=== PATIENT | female | born 1955 | race Caucasian/White ===

== ENCOUNTER 2018-11-14 13:40 | Emergency (ER) | payer OTHER ==
[~2018-11-14] VITALS: Ht 172.7 cm; Wt 68.0 kg
[~2018-11-14 13:40] MED LIST: ALBU90OI INH; CALCIUM CITRAT480 GM PO; CHOL10002; ENOX100I; PROBIOTIC1 EAC1 PO; Percocet 5-3251 EACH PO; RALO60 PO; VITAMINS; WARF4; WARF5 PO; Zithromax250 MG PO
[2018-11-14] MEDS ORDERED: Coumadin5 MG PO (15:44)
[2018-11-15] MEDS ORDERED: PARVA-CAL 5001 EACH PO (09:17)
== END 2018-11-14 16:04 | disposition home or self-care (01) ==
LOC: ER 13:40
DX: I82.402 Acute embolism and thrombosis of unspecified deep veins of left lower extremity (principal); Z88.0 Allergy status to penicillin; Z88.1 Allergy status to other antibiotic agents; Z88.5 Allergy status to narcotic agent; Z85.3 Personal history of malignant neoplasm of breast; F17.200 Nicotine dependence, unspecified, uncomplicated
CPT/HCPCS: 93005; 93010; 93971; 99284-25; J1650

== ENCOUNTER 2018-11-15 08:42 | Day surgery (SDC) | payer OTHER ==
[~2018-11-15 08:42] MED LIST changes: +Coumadin5 MG PO
[2018-11-15] MEDS ORDERED: PARVA-CAL 5001 EACH PO (09:17)
== END 2018-11-15 09:30 | disposition home or self-care (01) ==
LOC: ATC 08:42
DX: I82.492 Acute embolism and thrombosis of other specified deep vein of left lower extremity (principal); Z88.0 Allergy status to penicillin; Z88.8 Allergy status to other drugs, medicaments and biological substances
CPT/HCPCS: 96372; J1650

== ENCOUNTER 2018-11-16 02:21 | Day surgery (SDC) | payer OTHER ==
[~2018-11-16 02:21] MED LIST changes: +PARVA-CAL 5001 EACH PO
--- NOTE | 2018-11-16 14:13 | NUR ---
PT BACK IN TO GET LOVENOX AFTER MD SENT NEW ORDERS TO CONTINUE X 3 DAYS EVEN THOUGH INR WAS > 2.0 THIS AM.
== END 2018-11-16 23:06 | disposition home or self-care (01) ==
LOC: ATC 02:21
DX: I82.492 Acute embolism and thrombosis of other specified deep vein of left lower extremity (principal); Z88.0 Allergy status to penicillin; Z88.8 Allergy status to other drugs, medicaments and biological substances
CPT/HCPCS: 36416; 85610; 96372; J1650

== ENCOUNTER 2018-11-17 09:55 | Day surgery (SDC) | payer OTHER ==
--- NOTE | 2018-11-17 10:13 | NUR ---
FINGERSTICK INR CHECK TODAY = 2.4
== END 2018-11-17 10:07 | disposition home or self-care (01) ==
LOC: ATC 09:55
DX: I82.492 Acute embolism and thrombosis of other specified deep vein of left lower extremity (principal); Z88.0 Allergy status to penicillin; Z88.8 Allergy status to other drugs, medicaments and biological substances
CPT/HCPCS: 36416; 85610; 96372; J1650

== ENCOUNTER 2018-11-18 10:57 | Day surgery (SDC) | payer OTHER ==
--- NOTE | 2018-11-18 13:09 | NUR ---
PT INR 2.9, MEDICATION GIVEN PER ORDERS. PT TEACHING ON CONDTION, VERBALIZES UNDERSTANDING.
--- NOTE | 2018-11-18 17:08 | NUR ---
INR RESULT FAXED TO DR KOURTNEY CORDOVA
== END 2018-11-18 11:16 | disposition home or self-care (01) ==
LOC: ATC 10:57
DX: I82.492 Acute embolism and thrombosis of other specified deep vein of left lower extremity (principal); Z88.0 Allergy status to penicillin; Z88.8 Allergy status to other drugs, medicaments and biological substances
CPT/HCPCS: 36416; 85610; 96372; J1650

== ENCOUNTER → 2019-04-25 | Outpatient (CLI) | payer OTHER | LOC: LAB SHORT 17:07 → LAB 17:07 | DX: L08.9 Local infection of the skin and subcutaneous tissue, unspecified (principal); D22.4 Melanocytic nevi of scalp and neck | CPT/HCPCS: 87529 ==

== ENCOUNTER → 2019-07-02 | Outpatient (CLI) | payer OTHER ==
[2019-07-04 14:07] LABS: HPV 16 Negative (Negative); HPV 18 Negative (Negative); HPV OTHER HR TYPES Negative (Negative)
== END | disposition home or self-care (01) ==
LOC: LAB SHORT 12:55 → LAB 12:55
PROVIDERS: Nurse Practitioner Women's Health
DX: Z12.4 Encounter for screening for malignant neoplasm of cervix (principal)
CPT/HCPCS: 87624; G0123

== ENCOUNTER 2019-11-16 08:59 | Emergency (ER) | payer OTHER ==
[~2019-11-16] VITALS: Ht 165.1 cm; Wt 65.8 kg
[2019-11-16 10:15] LABS: BASOPHILS ABSOLUTE AUTO 0.02 K/mm3 (0.00-0.23); BASOPHILS PERCENT AUTO 0 % (0-2); EOSINOPHILS ABSOLUTE AUTO 0.12 K/mm3 (0.00-0.68); EOSINOPHILS PERCENT AUTO 2 % (0-6); Hematocrit 49.9 % (33.0-51.0); Hemoglobin 16.7 g/dL (11.5-16.0); IMMATURE GRAN ABSOLUTE AUTO 0.01 K/mm3 (0.00-0.10); IMMATURE GRAN PERCENT AUTO 0 % (0-1); LYMPHOCYTES ABSOLUTE AUTO 0.45 K/mm3 (0.84-5.20); LYMPHOCYTES PERCENT AUTO 9 % (21-46); MONOCYTES ABSOLUTE AUTO 0.45 K/mm3 (0.16-1.47); MONOCYTES PERCENT AUTO 9 % (4-13); Mean Corpuscular HGB 35.8 pg (26.0-34.0); Mean Corpuscular HGB Conc 33.5 g/dL (31.5-36.5); Mean Corpuscular Volume 107 fL (80-100); NEUTROPHILS ABSOLUTE AUTO 4.12 K/mm3 (1.96-9.15); NEUTROPHILS PERCENT AUTO 80 % (41-73); Platelet Count 145 K/mm3 (150-400); RDW Coefficient Variation 14.1 % (11.7-14.2); RDW Standard Deviation 55.9 fL (35.1-46.3); Red Blood Cell Count 4.67 M/mm3 (3.80-5.20); White Blood Cell Count 5.17 K/mm3 (4.00-11.30)
[2019-11-16 10:33] LABS: Alanine Aminotransfer (ALT/SGP 22 U/L (12-78); Albumin, Blood 3.3 g/dL (3.4-5.0); Albumin/Globulin Ratio 0.9 (0.8-1.8); Anion Gap 4 mmol/L (6-16); Aspartate Aminotrans (AST/SGOT 18 U/L (12-37); Bilirubin, Total 0.9 mg/dL (0.1-1.0); Blood Urea Nitrogen 9 mg/dL (8-24); CO2, Blood 30 mmol/L (21-32); Calcium, Blood 8.9 mg/dL (8.5-10.1); Chloride, Blood 108 mmol/L (98-108); Globulin, Blood 3.7 g/dL (2.2-4.0); Glomerular Filtration Rate >60 (60-); Glucose, Blood 104 mg/dL (70-99); Potassium, Blood 3.7 mmol/L (3.5-5.5); Sodium, Blood 142 mmol/L (136-145)
[2019-11-16 10:35] LABS: Alk Phos 95 U/L (50-136)
== END 2019-11-16 11:34 | disposition home or self-care (01) ==
LOC: ER 08:59
PROVIDERS: Physician Assistant
DX: K11.20 Sialoadenitis, unspecified (principal); F17.200 Nicotine dependence, unspecified, uncomplicated; Z88.0 Allergy status to penicillin; Z88.5 Allergy status to narcotic agent; Z88.1 Allergy status to other antibiotic agents; Z79.01 Long term (current) use of anticoagulants
CPT/HCPCS: 36415; 80053; 85025; 96365; 96375; 99283-25; J1885

== ENCOUNTER 2019-12-01 10:41 | Inpatient (IN) | payer OTHER ==
[~2019-12-01] VITALS: Ht 172.7 cm; Wt 63.6 kg
[2019-12-01] MEDS ORDERED: CLIN150 PO (11:00)
[2019-12-01] MEDS ORDERED: PROBIOTIC GOLD1 EACH PO (11:01)
[2019-12-01] MEDS ORDERED: WARF4 PO (11:01)
[2019-12-01 11:17] LABS: BASOPHILS ABSOLUTE AUTO 0.02 K/mm3 (0.00-0.23); BASOPHILS PERCENT AUTO 0 % (0-2); EOSINOPHILS PERCENT AUTO 2 % (0-6); Hematocrit 46.7 % (33.0-51.0); Hemoglobin 15.5 g/dL (11.5-16.0); IMMATURE GRAN ABSOLUTE AUTO 0.05 K/mm3 (0.00-0.10); IMMATURE GRAN PERCENT AUTO 1 % (0-1); LYMPHOCYTES ABSOLUTE AUTO 0.77 K/mm3 (0.84-5.20); LYMPHOCYTES PERCENT AUTO 14 % (21-46); MONOCYTES ABSOLUTE AUTO 0.36 K/mm3 (0.16-1.47); MONOCYTES PERCENT AUTO 6 % (4-13); Mean Corpuscular HGB 35.8 pg (26.0-34.0); Mean Corpuscular HGB Conc 33.2 g/dL (31.5-36.5); Mean Corpuscular Volume 108 fL (80-100); Mean Platelet Volume 9.6 fL (9.1-12.4); NEUTROPHILS ABSOLUTE AUTO 4.36 K/mm3 (1.96-9.15); NEUTROPHILS PERCENT AUTO 77 % (41-73); Platelet Count 234 K/mm3 (150-400); RDW Coefficient Variation 14.3 % (11.7-14.2); RDW Standard Deviation 57.5 fL (35.1-46.3); Red Blood Cell Count 4.33 M/mm3 (3.80-5.20); White Blood Cell Count 5.66 K/mm3 (4.00-11.30)
[2019-12-01 11:34] LABS: Alanine Aminotransfer (ALT/SGP 23 U/L (12-78); Albumin, Blood 3.1 g/dL (3.4-5.0); Albumin/Globulin Ratio 0.8 (0.8-1.8); Anion Gap 4 mmol/L (6-16); Aspartate Aminotrans (AST/SGOT 15 U/L (12-37); Bilirubin, Total 0.4 mg/dL (0.1-1.0); Blood Urea Nitrogen 8 mg/dL (8-24); Bun/Creatinine Ratio 12.5 (12.0-20.0); CO2, Blood 31 mmol/L (21-32); Calcium, Blood 9.1 mg/dL (8.5-10.1); Chloride, Blood 107 mmol/L (98-108); Creatinine, Blood 0.64 mg/dL (0.40-1.00); Globulin, Blood 3.9 g/dL (2.2-4.0); Glomerular Filtration Rate >60 (60-); Glucose, Blood 92 mg/dL (70-99); Potassium, Blood 3.7 mmol/L (3.5-5.5); Sodium, Blood 142 mmol/L (136-145)
[2019-12-01 11:36] LABS: Alk Phos 87 U/L (50-136)
[2019-12-01] MEDS ORDERED: ANORO ELLIPTA1 EACH INH ×2 (13:11)
[2019-12-01 14:14] LABS: International Normalized Ratio 1.75; Prothrombin Time Results 18.1 Sec (9.7-11.5)
--- NOTE | 2019-12-01 15:09 | NUR ---
PT ADMITTED. PT ADMITTED IN STABLE CONDTION. PT ORIENTED TO ROOM. CALL LIGHT IN REACH. AT BEDSIDE. DR. PARIS CALLED FOR PAIN MEDS. TYLENOL AND TORADOL ORDERED. WILL MEDICATE ONCE VERIFIED. WILL CONTINUE TO MONITOR.
--- NOTE | 2019-12-01 16:50 | NUR ---
SHIFT SUMMARY PT MEDICATED FOR PAIN ONCE THIS SHIFT. HEAT PAD IN ROOM FOR COMFORT. L JAW REDNESS LESSENED. IV ANTIBIOTICS INFUSED. NICOTINE PATCH APPLIED. PT DENIES NEEDS AT THIS TIME. VSS. WILL CONTINUE TO MONITOR UNITL TURNOVER IS COMPLETE.
--- NOTE | 2019-12-02 04:17 | NUR ---
SHIFT SUMMARY PATIENT HAD NO ACUTE CHANGES OBSERVED. AXOX 4 AND INDEPENDENT IN ROOM. REPORTED RIGHT JAW PAIN X TWO AND IV TORADOL 15 MG GIVEN PER EMAR. PATIENT ABLE TO SLEEP. PIV REMAINS INTACT. IV ABX INFUSED. DENIES SOB AND N/V. COOPERATIVE WITH CARE. CALL LIGHT IN REACH. BED IN LOWEST POSITION. WILL CONTINUE TO MONITOR UNTIL DAY SHIFT NURSE ASSUME CARE.
[2019-12-02 05:39] LABS: International Normalized Ratio 2.43; Prothrombin Time Results 24.7 Sec (9.7-11.5)
--- NOTE | 2019-12-02 11:58 | NUR ---
DR BECKHAM CALLED FROM [facility] AND ASKED THAT I PLACE AN ORDER AND HAVE READY AT THE BEDSIDE 1% LIDOCAINE WITH EPI AND 25MCG OF FENTANYL.
--- NOTE | 2019-12-02 12:54 | NUR ---
ASSISTED DR NG WITH REMOVAL OF SOME DICHARGE FROM RIGHT SIDE JAW ABCESS. DR NG USED 2ML OF LIDOCAINE AT SITE OF REMOVAL AND I ADMINISTERED 25MCG OF FENTANYL IV FO PAIN CONTROL. PATIENT TOLERATED WELL. REMOVED DISCHARGED SENT TO LAB FOR CULTURE.
--- NOTE | 2019-12-02 14:52 | NUR ---
12/02/19 Pt. gave permisson to this SRN to provide care on 12/03/19.
--- NOTE | 2019-12-02 16:45 | NUR ---
SHIFT SUMMARY THE PATIENT HAS HAD A GOOD SHIFT. C/O PAIN ONCE MID-SHIFT WITH EFFECTIVENESS FROM REQUESTED IV TORODOL. HAD DRAINAGE OF R JAW ABCESS AT THE BEDSIDE BY DR NG, ENT AND TOLERATED WELL. CONTINUES ON IV ABX WITHOUT S/SX OF ADVERSE REACTIONS NOTED OR REPORTED. VITALS HAVE BEEN STABLE. THE PATIENT REMAINS INDEPENDENT IN HER ROOM. SHE CALLS APPROPRIATELY FOR STAFF ASSIST. WILL CONTINUE TO MONITOR AND PROVIDE CARE NEEDED.
[2019-12-03 05:37] LABS: International Normalized Ratio 1.89; Prothrombin Time Results 19.5 Sec (9.7-11.5)
--- NOTE | 2019-12-03 06:50 | NUR ---
PT with failed outpt tx of dental abscess rt sided had ENT consult who attempted to aspirate rt facial edema. Medicated x 2 with toradol for facial pain, tylenol x 1. Helpful effect. Continues in IV flagyl and levaquin to tx infection.
[2019-12-03] MEDS ORDERED: WARF6 PO (11:31)
[2019-12-03] MEDS ORDERED: NICO21TP TOP (11:32)
[2019-12-03] MEDS ORDERED: LEVFLO500 PO (11:33)
[2019-12-03] MEDS ORDERED: METR500 PO (11:34)
[2019-12-03] MEDS ORDERED: VSL (11:36)
[2019-12-03] MEDS ORDERED: TRAM50 PO (15:56)
[2019-12-03] MEDS ORDERED: DEXA2 PO (16:07)
--- NOTE | 2019-12-03 17:28 | NUR ---
DISCHARGED TO HOME AT 1625 WITH BELONGINGS AND INSTRUCTIONS. SHE ALSO HAS HER TRAMADOL RX. SHE UNDERSTANDS WHAT SHE NEEDS TO GEROPSYCHOLOGIST FROM THE PHARMACY. SHE IS ABLE TO EAT AND DRINK WELL. HER RIGHT JAW/CHEEK IS RED AND SWOLLEN. IT IS PAINFUL. SHE WILL TAKE STEROIDS, ANTIBIOTICS, AND PAIN MEDICINE AT HOME AND SEE THE DENTIST IN 3 DAYS.
== END 2019-12-03 16:52 | disposition home or self-care (01) | DRG 159 ==
LOC: ER 10:41 → MEDS 10:42
PROVIDERS: Pharmacist; Physician Assistant; ADMIT Internal Medicine
DX: K04.7 Periapical abscess without sinus (principal); J44.9 Chronic obstructive pulmonary disease, unspecified; F17.210 Nicotine dependence, cigarettes, uncomplicated; Z86.718 Personal history of other venous thrombosis and embolism; Z88.1 Allergy status to other antibiotic agents; Z88.5 Allergy status to narcotic agent; Z88.0 Allergy status to penicillin; Z88.7 Allergy status to serum and vaccine; Z85.3 Personal history of malignant neoplasm of breast; Z92.21 Personal history of antineoplastic chemotherapy; Z92.3 Personal history of irradiation; Z79.01 Long term (current) use of anticoagulants
CPT/HCPCS: 36415; 70487; 80053; 85025; 85610; 87070; 87075; 87076; 87185; 87205; 93970; 94640; 94760; 96365-59; 96366; 96367; 96375; 96375-59; 96376; 99284-25; A9270; G0378; J1100; J1885; J1956; J3010; J7040; Q9967

== ENCOUNTER → 2021-02-23 | Outpatient (CLI) | payer OTHER ==
[~2021-02-23] MED LIST changes: +ANORO ELLIPTA1 EACH INH; +CLIN150 PO; +DEXA2 PO; +LEVFLO500 PO; +METR500 PO; +NICO21TP TOP; +PROBIOTIC GOLD1 EACH PO; +TRAM50 PO; +VSL; +WARF4 PO; +WARF6 PO
== END | disposition home or self-care (01) ==
LOC: LAB SHORT 12:34 → PLD 12:34
DX: D22.5 Melanocytic nevi of trunk (principal)
CPT/HCPCS: 88305

== ENCOUNTER → 2022-02-22 | Outpatient (CLI) | payer OTHER | END | disposition home or self-care (01) | LOC: LAB SHORT 11:06 → LAB 11:06 | DX: D22.5 Melanocytic nevi of trunk (principal) | CPT/HCPCS: 88305 ==

== ENCOUNTER 2023-03-04 00:12 | Day surgery (SDC) | payer OTHER ==
[2023-03-04] MEDS ORDERED: CHANTIX1 MG PO (10:25)
[2023-03-04] MEDS ORDERED: Ventolin/Prove6.7 GM INH (10:33)
[2023-03-04] MEDS ORDERED: PROLIA60 MG/1 ML SC ×2 (10:34→10:38)
[2023-03-04 11:26] VITALS: BP 147/83
== END 2023-03-04 11:44 | disposition home or self-care (01) ==
LOC: ATC 00:12
DX: R91.1 Solitary pulmonary nodule (principal); Z88.5 Allergy status to narcotic agent; Z88.0 Allergy status to penicillin; Z88.1 Allergy status to other antibiotic agents
CPT/HCPCS: 96372; J1650

== ENCOUNTER 2023-03-05 00:05 | Day surgery (SDC) | payer OTHER ==
[~2023-03-05 00:05] MED LIST changes: +CHANTIX1 MG PO; +PROLIA60 MG/1 ML SC; +Ventolin/Prove6.7 GM INH
[2023-03-05 11:36] VITALS: BP 140/87
== END 2023-03-05 11:38 | disposition home or self-care (01) ==
LOC: ATC 00:05
DX: Z86.711 Personal history of pulmonary embolism (principal); Z79.01 Long term (current) use of anticoagulants
CPT/HCPCS: 96372; J1650

== ENCOUNTER 2023-03-06 00:26 | Day surgery (SDC) | payer OTHER ==
[2023-03-06 11:50] VITALS: BP 166/98
== END 2023-03-06 11:50 | disposition home or self-care (01) ==
LOC: ATC 00:26
DX: Z86.711 Personal history of pulmonary embolism (principal); Z79.01 Long term (current) use of anticoagulants
CPT/HCPCS: 96372; J1650

== ENCOUNTER 2023-04-05 06:09 | Day surgery (SDC) | payer OTHER ==
[~2023-04-05] VITALS: Ht 172.7 cm; Wt 75.5 kg
[2023-04-05] VITALS (10 sets, daily range): BP systolic 105–152; BP diastolic 68–99
[2023-04-05] MEDS ORDERED: ENOX40I SC (06:48)
[2023-04-05] MEDS ORDERED: ATEN25 PO (06:49)
--- NOTE | 2023-04-05 07:17 | NUR ---
Ambulatory in Day Surgery History, Chart, Medications and Allergies reviewed before start of procedure.Patient confirms NPO status and agrees with scheduled surgery. Pre-Op teaching done. Pt verbalizes understanding. Patient States Post-Procedure ride home has been arranged.
--- NOTE | 2023-04-05 09:16 | NUR ---
Patient up to Ambulate independently. Gait steady. Discharge instructions reviewed with patient. Patient verbalizes understanding. Copy given to patient to take home. Dressing to procedure site clean, dry, intact with no visible drainage, swelling, erythema or bruising noted. Patient States Post-Procedure ride home has been arranged. Discharged via wheelchair to private car for ride home. PT TO GO STRAIGHT TO [facility] FOR CHEMO APPT AT 0930. PT DENIES PAIN. AT BEDSIDE.
--- NOTE | 2023-04-05 09:21 | NUR ---
IV REMOVED CLEAR SITE /CATH INTACT
== END 2023-04-05 22:51 | disposition home or self-care (01) ==
LOC: ORSCMMR 06:09 → ORD 06:09 → ORSCMMR 06:10 → ORD 07:30
PROVIDERS: Surgery
PROC: 05HM33Z Insertion of Infusion Device into Right Internal Jugular Vein, Percutaneous Approach (ICD-10-PCS; principal; 2023-04-05 07:30)
PROC: B543ZZA Ultrasonography of Right Jugular Veins, Guidance (ICD-10-PCS; principal; 2023-04-05 07:30)
PROC: 0JH63WZ Insertion of Totally Implantable Vascular Access Device into Chest Subcutaneous Tissue and Fascia, Percutaneous Approach (ICD-10-PCS; principal; 2023-04-05 07:30)
DX: C50.211 Malignant neoplasm of upper-inner quadrant of right female breast (principal); Z86.718 Personal history of other venous thrombosis and embolism; F17.210 Nicotine dependence, cigarettes, uncomplicated; J44.9 Chronic obstructive pulmonary disease, unspecified; Z85.118 Personal history of other malignant neoplasm of bronchus and lung; Z85.3 Personal history of malignant neoplasm of breast; Z85.820 Personal history of malignant melanoma of skin; Z79.01 Long term (current) use of anticoagulants; Z79.899 Other long term (current) drug therapy
CPT/HCPCS: 77001; C1788; J1100; J1642; J1956; J2405; J2704; J3010; J7120

== ENCOUNTER 2023-04-07 03:00 | Day surgery (SDC) | payer OTHER ==
[~2023-04-07 03:00] MED LIST changes: +ATEN25 PO; +ENOX40I SC
== END 2023-04-07 09:22 | disposition home or self-care (01) ==
LOC: ATC 03:00
DX: C34.11 Malignant neoplasm of upper lobe, right bronchus or lung (principal); Z86.718 Personal history of other venous thrombosis and embolism; Z79.01 Long term (current) use of anticoagulants; Z88.1 Allergy status to other antibiotic agents; Z88.5 Allergy status to narcotic agent; Z88.0 Allergy status to penicillin
CPT/HCPCS: 85610; J1650

== ENCOUNTER 2023-04-08 00:52 | Day surgery (SDC) | payer OTHER ==
[2023-04-08 09:50] VITALS: BP 121/65
== END 2023-04-08 10:00 | disposition home or self-care (01) ==
LOC: ATC 00:52
DX: Z86.718 Personal history of other venous thrombosis and embolism (principal); Z86.711 Personal history of pulmonary embolism; C34.11 Malignant neoplasm of upper lobe, right bronchus or lung; G47.00 Insomnia, unspecified; Z90.2 Acquired absence of lung [part of]; Z79.01 Long term (current) use of anticoagulants; Z74.01 Bed confinement status
CPT/HCPCS: 36416; 85610; 96372; J1650

== ENCOUNTER 2023-04-09 00:55 | Day surgery (SDC) | payer OTHER ==
[2023-04-09 09:01] VITALS: BP 122/68
== END 2023-04-09 09:15 | disposition home or self-care (01) ==
LOC: ATC 00:55
DX: Z86.718 Personal history of other venous thrombosis and embolism (principal); Z86.711 Personal history of pulmonary embolism; C34.11 Malignant neoplasm of upper lobe, right bronchus or lung; G47.00 Insomnia, unspecified; Z90.2 Acquired absence of lung [part of]; Z79.01 Long term (current) use of anticoagulants; Z88.1 Allergy status to other antibiotic agents; Z88.5 Allergy status to narcotic agent; Z88.0 Allergy status to penicillin; Z79.899 Other long term (current) drug therapy
CPT/HCPCS: 36416; 85610; 96372; J1650

== ENCOUNTER 2023-04-10 01:00 | Day surgery (SDC) | payer OTHER ==
[2023-04-10 08:33] VITALS: BP 106/64
== END 2023-04-10 08:46 | disposition home or self-care (01) ==
LOC: ATC 01:00
DX: C34.11 Malignant neoplasm of upper lobe, right bronchus or lung (principal); Z86.718 Personal history of other venous thrombosis and embolism; Z79.01 Long term (current) use of anticoagulants; Z90.2 Acquired absence of lung [part of]; G47.00 Insomnia, unspecified; Z86.711 Personal history of pulmonary embolism; Z88.5 Allergy status to narcotic agent; Z88.0 Allergy status to penicillin; Z88.1 Allergy status to other antibiotic agents
CPT/HCPCS: 36416; 85610; 96372; J1650

== ENCOUNTER 2023-04-11 01:33 | Day surgery (SDC) | payer OTHER ==
[2023-04-11 09:55] VITALS: BP 117/83
== END 2023-04-11 09:55 | disposition home or self-care (01) ==
LOC: ATC 01:33
DX: C34.11 Malignant neoplasm of upper lobe, right bronchus or lung (principal); Z86.718 Personal history of other venous thrombosis and embolism; Z79.01 Long term (current) use of anticoagulants; Z88.1 Allergy status to other antibiotic agents; Z88.5 Allergy status to narcotic agent; Z88.0 Allergy status to penicillin
CPT/HCPCS: J1650

== ENCOUNTER → 2023-06-05 | Outpatient (CLI) | payer OTHER ==
[2023-06-05 12:10] LABS: Hematocrit 24.9 % (33.0-51.0); Hemoglobin 8.1 g/dL (11.5-16.0); Mean Corpuscular HGB 32.8 pg (26.0-34.0); Mean Corpuscular HGB Conc 32.5 g/dL (31.5-36.5); Mean Corpuscular Volume 101 fL (80-100); Mean Platelet Volume 10.5 fL (9.1-12.4); Platelet Count 89 K/mm3 (150-400); RDW Coefficient Variation 19.6 % (11.7-14.2); RDW Standard Deviation 69.1 fL (35.1-46.3); Red Blood Cell Count 2.47 M/mm3 (3.80-5.20); White Blood Cell Count 1.75 K/mm3 (4.00-11.30)
[2023-06-05 13:48] LABS: BASOPHILS PERCENT MAN 0 % (0-2); EOSINOPHILS ABSOLUTE MAN 0.05 K/mm3 (0.00-0.68); EOSINOPHILS PERCENT MAN 3 % (0-6); LYMPHOCYTES % ATYPICAL MANUAL 2 % (0-0); LYMPHOCYTES ABSOLUTE MAN 0.61 K/mm3 (0.84-5.20); LYMPHOCYTES PERCENT MAN 33 % (21-46); MONOCYTES ABSOLUTE MAN 0.14 K/mm3 (0.16-1.47); MONOCYTES PERCENT MAN 8 % (4-13); NEUTROPHILS ABSOLUTE MAN 0.94 K/mm3 (1.96-9.15); SEG NEUTROPHILS PERCENT MAN 54 % (41-73); TOTAL CELLS COUNTED 100
== END | disposition home or self-care (01) ==
LOC: LAB 11:00 → LAB SHORT 11:00
PROVIDERS: Registered Nurse Oncology
DX: C34.90 Malignant neoplasm of unspecified part of unspecified bronchus or lung (principal); D70.1 Agranulocytosis secondary to cancer chemotherapy; T45.1X5A Adverse effect of antineoplastic and immunosuppressive drugs, initial encounter
CPT/HCPCS: 85025

== ENCOUNTER 2023-06-17 02:14 | Day surgery (SDC) | payer OTHER ==
[2023-06-17 08:18] VITALS: BP 97/63
[2023-06-17 08:33] VITALS: BP 101/58
[2023-06-17 09:55] VITALS: BP 113/52
[2023-06-17 10:20] VITALS: BP 109/65
[2023-06-17 11:25] VITALS: BP 110/51
== END 2023-06-17 11:35 | disposition home or self-care (01) ==
LOC: ATC 02:14 → EDSTATUS 07:30 → ATC 11:35
DX: C34.90 Malignant neoplasm of unspecified part of unspecified bronchus or lung (principal); F17.200 Nicotine dependence, unspecified, uncomplicated; Z88.5 Allergy status to narcotic agent; Z88.0 Allergy status to penicillin; Z88.1 Allergy status to other antibiotic agents; Z79.899 Other long term (current) drug therapy
CPT/HCPCS: 36415; 86850; 86900; 86901; 86920; J1642; J7050; P9016

== ENCOUNTER 2024-03-17 08:11 | Emergency (ER) | payer OTHER ==
[~2024-03-17] VITALS: Ht 172.7 cm; Wt 76.0 kg
[2024-03-17] MEDS ORDERED: TRELEGY ELLIPT1 EACH (09:00)
[2024-03-17] MEDS ORDERED: EUTHYROX25 MC1 PO (09:01)
[2024-03-17] MEDS ORDERED: ZYPREXA2.5 MG PO (09:02)
[2024-03-17] MEDS ORDERED: NS 1,000 ML IV SCH (09:45)
[2024-03-17 09:47] LABS: Source, Urine Clean Catch
[2024-03-17 09:51] LABS: BASOPHILS ABSOLUTE AUTO 0.01 K/mm3 (0.00-0.23); BASOPHILS PERCENT AUTO 1 % (0-2); EOSINOPHILS ABSOLUTE AUTO 0.12 K/mm3 (0.00-0.68); EOSINOPHILS PERCENT AUTO 6 % (0-6); Hematocrit 37.2 % (33.0-51.0); Hemoglobin 11.9 g/dL (11.5-16.0); IMMATURE GRAN ABSOLUTE AUTO 0.01 K/mm3 (0.00-0.10); IMMATURE GRAN PERCENT AUTO 1 % (0-1); LYMPHOCYTES ABSOLUTE AUTO 0.57 K/mm3 (0.84-5.20); LYMPHOCYTES PERCENT AUTO 27 % (21-46); MONOCYTES PERCENT AUTO 9 % (4-13); Mean Corpuscular HGB 30.1 pg (26.0-34.0); Mean Corpuscular Volume 94 fL (80-100); Mean Platelet Volume 9.5 fL (9.1-12.4); NEUTROPHILS ABSOLUTE AUTO 1.24 K/mm3 (1.96-9.15); NEUTROPHILS PERCENT AUTO 58 % (41-73); Platelet Count 111 K/mm3 (150-400); RDW Coefficient Variation 15.5 % (11.7-14.2); RDW Standard Deviation 53.5 fL (35.1-46.3); Red Blood Cell Count 3.96 M/mm3 (3.80-5.20); White Blood Cell Count 2.15 K/mm3 (4.00-11.30)
[2024-03-17 09:53] LABS: Appearance, Urine Hazy (Clear); Bilirubin, Urine Neg (Neg); Blood, Urine 2+ (Neg); Color, Urine Yellow (P-Yellow); Glucose Qualitative, Urine Neg (Neg); Ketones, Urine Neg (Neg); Leukocyte Esterase, Urine 3+ (Neg); Nitrite, Urine Neg (Neg); Protein, Urine 1+ (Neg); Specific Gravity, Urine 1.015 (1.003-1.022); Urobilinogen, Urine NORM (Normal)
[2024-03-17 10:12] LABS: Albumin, Blood 3.4 g/dL (3.4-5.0); Albumin/Globulin Ratio 1.1 (0.8-1.8); Bilirubin, Total 0.5 mg/dL (0.1-1.0); Calcium, Blood 8.9 mg/dL (8.5-10.1); Creatinine, Blood 0.76 mg/dL (0.40-1.00); Potassium, Blood 4.2 mmol/L (3.5-5.5); Total Protein, Blood 6.4 g/dL (6.4-8.2)
[2024-03-17 10:19] LABS: Hyaline Casts 0-2 /lpf (0-2)
[2024-03-17] MEDS ORDERED: Ondansetron HCl 2 MG / ML 2ML Vial IV ONE (10:25)
[2024-03-17] MEDS ORDERED: FentaNYL Citrate 50 MCG/ML 2 ML Injection IV ONE (10:25)
[2024-03-17 10:27] LABS: Amorphous Mod (0-Heavy); Bacteria Many /hpf; Mucus Mod (0-Heavy); Squamous Epithelial Cells Rare /hpf (Few)
[2024-03-17 11:01] VITALS: BP 113/67
[2024-03-17] MEDS ORDERED: Trimethoprim/Sulfamethoxazole DS Tab PO ONE (11:25)
[2024-03-17] MEDS ORDERED: Bactrim Ds Tab1 EACH PO (11:26)
== END 2024-03-17 11:38 | disposition home or self-care (01) ==
LOC: ER 08:11
PROVIDERS: Student in an Organized Health Care Education/Training Program
DX: N12 Tubulo-interstitial nephritis, not specified as acute or chronic (principal); Z88.0 Allergy status to penicillin; Z88.5 Allergy status to narcotic agent; Z88.1 Allergy status to other antibiotic agents; Z79.01 Long term (current) use of anticoagulants; Z79.51 Long term (current) use of inhaled steroids; Z79.899 Other long term (current) drug therapy
CPT/HCPCS: 76705; 80053; 81001; 83690; 85025; 87086; 93005; 93010; 96361; 96374; 96375; 99284-25; A9270; J2405; J3010; J7030

== ENCOUNTER → 2024-10-31 | Outpatient (CLI) | payer OTHER ==
[~2024-10-31] MED LIST changes: +Bactrim Ds Tab1 EACH PO; +EUTHYROX25 MC1 PO; +TRELEGY ELLIPT1 EACH; +ZYPREXA2.5 MG PO
== END ==
LOC: LAB SHORT 10:00 → LAB 10:00
DX: N39.0 Urinary tract infection, site not specified (principal)
CPT/HCPCS: 87086

== ENCOUNTER 2025-01-16 12:40 | Emergency (ER) | payer OTHER ==
[~2025-01-16] VITALS: Ht 167.6 cm; Wt 79.4 kg
[2025-01-16 12:56] VITALS: BP 124/85
[2025-01-16 13:34] LABS: BASOPHILS ABSOLUTE AUTO 0.02 K/mm3 (0.00-0.23); BASOPHILS PERCENT AUTO 1 % (0-2); EOSINOPHILS ABSOLUTE AUTO 0.12 K/mm3 (0.00-0.68); EOSINOPHILS PERCENT AUTO 4 % (0-6); Hematocrit 39.8 % (33.0-51.0); Hemoglobin 13.7 g/dL (11.5-16.0); IMMATURE GRAN ABSOLUTE AUTO 0.02 K/mm3 (0.00-0.10); IMMATURE GRAN PERCENT AUTO 1 % (0-1); LYMPHOCYTES ABSOLUTE AUTO 0.69 K/mm3 (0.84-5.20); LYMPHOCYTES PERCENT AUTO 22 % (21-46); MONOCYTES ABSOLUTE AUTO 0.31 K/mm3 (0.16-1.47); MONOCYTES PERCENT AUTO 10 % (4-13); Mean Corpuscular HGB Conc 34.4 g/dL (31.5-36.5); Mean Corpuscular Volume 96 fL (80-100); Mean Platelet Volume 9.5 fL (9.1-12.4); NEUTROPHILS ABSOLUTE AUTO 2.04 K/mm3 (1.96-9.15); NEUTROPHILS PERCENT AUTO 64 % (41-73); Platelet Count 122 K/mm3 (150-400); RDW Coefficient Variation 14.6 % (11.7-14.2); RDW Standard Deviation 52.3 fL (35.1-46.3); Red Blood Cell Count 4.15 M/mm3 (3.80-5.20)
[2025-01-16 13:54] LABS: Albumin, Blood 3.7 g/dL (3.4-5.0); Albumin/Globulin Ratio 1.1 (0.8-1.8); Bilirubin, Total 0.4 mg/dL (0.1-1.0); Bun/Creatinine Ratio 20.6 (12.0-20.0); Calcium, Blood 9.5 mg/dL (8.5-10.1); Creatinine, Blood 0.73 mg/dL (0.40-1.00); Globulin, Blood 3.4 g/dL (2.2-4.0); Potassium, Blood 4.3 mmol/L (3.5-5.5); Total Protein, Blood 7.1 g/dL (6.4-8.2)
[2025-01-16] MEDS ORDERED: Aerochamber1 EACH INH (16:37)
== END 2025-01-16 16:00 | disposition home or self-care (01) ==
LOC: ER 12:40
PROVIDERS: Student in an Organized Health Care Education/Training Program
DX: J44.1 Chronic obstructive pulmonary disease with (acute) exacerbation (principal); Z88.0 Allergy status to penicillin; Z88.1 Allergy status to other antibiotic agents; Z88.5 Allergy status to narcotic agent; Z88.8 Allergy status to other drugs, medicaments and biological substances; Z79.899 Other long term (current) drug therapy
CPT/HCPCS: 71046; 80053; 84484; 85025; 99284-25

== ENCOUNTER 2025-03-06 08:44 | Emergency (ER) | payer OTHER ==
[~2025-03-06] VITALS: Ht 172.7 cm; Wt 81.7 kg
[~2025-03-06 08:44] MED LIST changes: +Aerochamber1 EACH INH
[2025-03-06] MEDS ORDERED: Ketorolac Tromethamine 15mg Vial IV ONE (09:15)
[2025-03-06 09:25] LABS: Source, Urine Clean Catch
[2025-03-06 09:30] LABS: BASOPHILS ABSOLUTE AUTO 0.02 K/mm3 (0.00-0.23); BASOPHILS PERCENT AUTO 0 % (0-2); EOSINOPHILS ABSOLUTE AUTO 0.08 K/mm3 (0.00-0.68); EOSINOPHILS PERCENT AUTO 2 % (0-6); Hematocrit 42.7 % (33.0-51.0); Hemoglobin 13.9 g/dL (11.5-16.0); IMMATURE GRAN ABSOLUTE AUTO 0.01 K/mm3 (0.00-0.10); IMMATURE GRAN PERCENT AUTO 0 % (0-1); LYMPHOCYTES ABSOLUTE AUTO 0.51 K/mm3 (0.84-5.20); LYMPHOCYTES PERCENT AUTO 10 % (21-46); MONOCYTES ABSOLUTE AUTO 0.48 K/mm3 (0.16-1.47); MONOCYTES PERCENT AUTO 10 % (4-13); Mean Corpuscular HGB 31.8 pg (26.0-34.0); Mean Corpuscular HGB Conc 32.6 g/dL (31.5-36.5); Mean Corpuscular Volume 98 fL (80-100); Mean Platelet Volume 9.6 fL (9.1-12.4); NEUTROPHILS ABSOLUTE AUTO 3.93 K/mm3 (1.96-9.15); NEUTROPHILS PERCENT AUTO 78 % (41-73); Platelet Count 120 K/mm3 (150-400); RDW Coefficient Variation 13.9 % (11.7-14.2); RDW Standard Deviation 50.4 fL (35.1-46.3); Red Blood Cell Count 4.37 M/mm3 (3.80-5.20); White Blood Cell Count 5.03 K/mm3 (4.00-11.30)
[2025-03-06 09:32] LABS: Appearance, Urine Cloudy (Clear); Bilirubin, Urine Neg (Neg); Blood, Urine 3+ (Neg); Color, Urine Yellow (P-Yellow); Glucose Qualitative, Urine Neg (Neg); Ketones, Urine Neg (Neg); Leukocyte Esterase, Urine 3+ (Neg); Nitrite, Urine Neg (Neg); Protein, Urine 2+ (Neg); Specific Gravity, Urine 1.015 (1.003-1.022); Urobilinogen, Urine NORM (Normal)
[2025-03-06 09:54] LABS: White Blood Cells, Urine 50-100 /hpf (0-5)
[2025-03-06 09:55] LABS: Squamous Epithelial Cells Mod /hpf (Few)
[2025-03-06 09:56] LABS: Amorphous Light (0-Heavy); Bacteria Many /hpf; Mucus Light (0-Heavy)
[2025-03-06 10:16] LABS: Albumin, Blood 3.6 g/dL (3.4-5.0); Albumin/Globulin Ratio 0.9 (0.8-1.8); Bilirubin, Total 0.9 mg/dL (0.1-1.0); Bun/Creatinine Ratio 15.1 (12.0-20.0); Calcium, Blood 8.9 mg/dL (8.5-10.1); Creatinine, Blood 0.79 mg/dL (0.40-1.00); Globulin, Blood 3.8 g/dL (2.2-4.0); Potassium, Blood 3.8 mmol/L (3.5-5.5); Total Protein, Blood 7.4 g/dL (6.4-8.2)
[2025-03-06 10:37] VITALS: BP 102/67
[2025-03-06] MEDS ORDERED: AMOCLA875 PO (10:37)
[2025-03-06] MEDS ORDERED: MOXI400 PO (10:48)
== END 2025-03-06 11:09 | disposition home or self-care (01) ==
LOC: ER 08:44
PROVIDERS: Physician Assistant
DX: K57.32 Diverticulitis of large intestine without perforation or abscess without bleeding (principal); J44.9 Chronic obstructive pulmonary disease, unspecified; F17.200 Nicotine dependence, unspecified, uncomplicated; Z79.51 Long term (current) use of inhaled steroids; Z88.0 Allergy status to penicillin; Z88.1 Allergy status to other antibiotic agents; Z88.5 Allergy status to narcotic agent
CPT/HCPCS: 74177; 80053; 81001; 83690; 85025; 87077; 87086; 87186; 96374-59; 99284-25; J1885; Q9967

== ENCOUNTER 2025-03-31 06:23 | Day surgery (SDC) | payer OTHER ==
[~2025-03-31] VITALS: Ht 172.7 cm; Wt 80.8 kg
[2025-03-31] VITALS (15 sets, daily range): BP systolic 93–133; BP diastolic 57–91
[~2025-03-31 06:23] MED LIST changes: +AMOCLA875 PO; +MOXI400 PO; +PROLIA60 MG/1 ML SQ
[2025-03-31] MEDS ORDERED: FentaNYL Citrate 50 MCG/ML 5 ML Injection ONE (06:37)
[2025-03-31] MEDS ORDERED: Dexamethasone Sod Phos 10 MG/ML 1ML VIAL ONE (06:37)
[2025-03-31] MEDS ORDERED: Ondansetron HCl 2 MG / ML 2ML Vial ONE (06:37)
[2025-03-31] MEDS ORDERED: Ketorolac Tromethamine 30mg Vial ONE (06:37)
[2025-03-31] MEDS ORDERED: Rocuronium Bromide 10 MG/ML 5ML Injection IV ONE (06:37)
[2025-03-31] MEDS ORDERED: propofoL 20 ML IV ONE (06:37)
[2025-03-31] MEDS ORDERED: Lactated Ringer's 1,000 ML IV SCH ×2 (06:40→10:15)
[2025-03-31] MEDS ORDERED: Metoclopramide HCl 5MG / ML 2ML Vial IV PRN ×2 (06:50→10:15)
[2025-03-31] MEDS ORDERED: ePHEDrine Sulfate 50 MG/ML 1ML Injection IV PRN (06:50)
[2025-03-31] MEDS ORDERED: Albuterol 2.5 MG/3 ML VIAL INH PRN (06:50)
[2025-03-31] MEDS ORDERED: FentaNYL Citrate 50 MCG/ML 2 ML Injection IV PRN (06:50)
[2025-03-31] MEDS ORDERED: Atropine Sulfate 0.1 MG/ML 10ML SYR IV PRN (06:50)
[2025-03-31] MEDS ORDERED: Labetalol HCL 5 MG/ML 4ML Injection (Single Dose) IV PRN (06:50)
[2025-03-31] MEDS ORDERED: HydrALAZINE HCl 20 MG / ML 1ML Vial IV PRN (06:55)
[2025-03-31] MEDS ORDERED: HYDROmorphone HCl/Pf 1MG SYR IV PRN ×3 (06:55→10:20)
[2025-03-31] MEDS ORDERED: Bupivacaine 0.25% Epi 1:200000 30 ML Vial ONE ×2 (07:03→07:22)
[2025-03-31] MEDS ORDERED: Ketorolac Tromethamine 15mg Vial IV PRN (07:10)
[2025-03-31] MEDS ORDERED: CeFAZolin Sodium 2,000 MG in NS 100 ML IV SCH (07:15)
--- NOTE | 2025-03-31 07:29 | NUR ---
History, Chart, Medications and Allergies reviewed before start of procedure. Pre-Op teaching done. Pt verbalizes understanding. Patient States Post-Procedure ride home has been arranged. Glasses removed, and taken home by pts [email or web address].
--- NOTE | 2025-03-31 07:42 | NUR ---
THIS RN REVIEWED THE IP STUDENT'S DOCUMENTATION. PER DR FALL [place] TO RECEIVE ANCEF WITH PT REPORTING "THROAT SWELLING" WHEN TAKING PCN A CHILD. DR FALL INFORMED OF PT HAVING TYPE AND SCREEN ON 03/17/25. NO FURTHER ORDERS GIVEN AT THIS TIME.
[2025-03-31] MEDS ORDERED: Sugammadex Sodium 200 MG/2ML SDV (100 MG/ML) ONE (09:09)
[2025-03-31] MEDS ORDERED: Estradiol Vag Cream 0.1 MG/G 42.5 GM Tube VAG SCH (09:55)
[2025-03-31] MEDS ORDERED: DiphenhydrAMINE HCL 25 MG Cap PO PRN (10:10)
[2025-03-31] MEDS ORDERED: Metoclopramide HCl 10 MG Tab PO PRN (10:15)
[2025-03-31] MEDS ORDERED: Acetaminophen 325 MG TABLET PO PRN (10:15)
[2025-03-31] MEDS ORDERED: Ondansetron 4 MG TAB PO PRN (10:15)
[2025-03-31] MEDS ORDERED: Naloxone HCl 0.4MG / ML 1ML Vial IV PRN (10:15)
[2025-03-31] MEDS ORDERED: HYDROcodone 5-APAP 325 TAB PO PRN (10:15)
[2025-03-31] MEDS ORDERED: Ondansetron HCl 2 MG / ML 2ML Vial IV PRN (10:20)
[2025-03-31] MEDS ORDERED: Ketorolac Tromethamine 30mg Vial IV PRN (10:20)
[2025-03-31] MEDS ORDERED: Simethicone 80 MG Chew PO PRN (10:20)
--- NOTE | 2025-03-31 11:02 | NUR ---
ARRIVAL PT ARRIVED TO UNIT S/P LAP HYSTERECTOMY. LAP SITES X4 CDI. TEE PAD WITH NO DRAINAGE. PT IS SHIVERING AND REPORTS BEING COLD. K PAD PROVIDED AND WARM BLANKETS WRAPPED AROUND PATIENT. MEDICATED FOR NAUSEA. OFFERED CRACKERS AND WATER WHICH SHE DECLINED AT THIS TIME. CALL LIGHT PROVIDED AND PATIENT WILL CALL IF NAUSEA WORSENS. LACEY IN PLACE, PATENT AND DRAINING.
[2025-03-31 11:22] LABS: BASOPHILS ABSOLUTE AUTO 0.01 K/mm3 (0.00-0.23); BASOPHILS PERCENT AUTO 0 % (0-2); EOSINOPHILS ABSOLUTE AUTO 0.05 K/mm3 (0.00-0.68); EOSINOPHILS PERCENT AUTO 2 % (0-6); Hematocrit 38.6 % (33.0-51.0); Hemoglobin 12.7 g/dL (11.5-16.0); IMMATURE GRAN ABSOLUTE AUTO 0.01 K/mm3 (0.00-0.10); IMMATURE GRAN PERCENT AUTO 0 % (0-1); LYMPHOCYTES ABSOLUTE AUTO 0.45 K/mm3 (0.84-5.20); LYMPHOCYTES PERCENT AUTO 13 % (21-46); MONOCYTES ABSOLUTE AUTO 0.12 K/mm3 (0.16-1.47); MONOCYTES PERCENT AUTO 4 % (4-13); Mean Corpuscular HGB Conc 32.9 g/dL (31.5-36.5); Mean Corpuscular Volume 97 fL (80-100); Mean Platelet Volume 9.8 fL (9.1-12.4); NEUTROPHILS ABSOLUTE AUTO 2.76 K/mm3 (1.96-9.15); NEUTROPHILS PERCENT AUTO 81 % (41-73); Platelet Count 108 K/mm3 (150-400); RDW Coefficient Variation 14.4 % (11.7-14.2); RDW Standard Deviation 51.1 fL (35.1-46.3); Red Blood Cell Count 3.97 M/mm3 (3.80-5.20)
--- NOTE | 2025-03-31 17:50 | NUR ---
SHIFT SUMMARY S/P LAP HYSTERECTOMY TEE PAD REMAINS DRY, LACEY PATENT AND DRAINING. CONTINUED CRAMPY PAIN THAT PATIENT REPORTS AT 12/30. STATES MUCH IMPROVED. TOLERATING DIET WELL WITH NO NAUSEA. PLAN IS FOR LACEY TO BE REMOVED WITH PACKING IN THE AM.
[2025-04-01 04:35] LABS: BASOPHILS PERCENT AUTO 0 % (0-2); EOSINOPHILS ABSOLUTE AUTO 0.02 K/mm3 (0.00-0.68); EOSINOPHILS PERCENT AUTO 0 % (0-6); Hemoglobin 11.6 g/dL (11.5-16.0); IMMATURE GRAN ABSOLUTE AUTO 0.04 K/mm3 (0.00-0.10); IMMATURE GRAN PERCENT AUTO 1 % (0-1); LYMPHOCYTES ABSOLUTE AUTO 0.67 K/mm3 (0.84-5.20); LYMPHOCYTES PERCENT AUTO 12 % (21-46); MONOCYTES PERCENT AUTO 11 % (4-13); Mean Corpuscular HGB 31.3 pg (26.0-34.0); Mean Corpuscular HGB Conc 32.2 g/dL (31.5-36.5); Mean Corpuscular Volume 97 fL (80-100); Mean Platelet Volume 10.1 fL (9.1-12.4); NEUTROPHILS PERCENT AUTO 76 % (41-73); Platelet Count 105 K/mm3 (150-400); RDW Coefficient Variation 14.4 % (11.7-14.2); RDW Standard Deviation 50.6 fL (35.1-46.3); Red Blood Cell Count 3.71 M/mm3 (3.80-5.20); White Blood Cell Count 5.63 K/mm3 (4.00-11.30)
[2025-04-01 05:14] VITALS: BP 124/80
--- NOTE | 2025-04-01 06:06 | NUR ---
SHIFT SUMMARY POD 0 LAP HYSTR. NO ACUTE CHANGES OVERNIGHT. VSS. TOLERATING ORALS, DENIES NAUSEA. LAP SITE x4 C/D/I c WOUND GLUE, MILD BRUISING VISUALIZED. VAGINAL PACKING REMOVED, MILD BROWN/SANG DRAINAGE ON PACKING. 2 PADS SATURATED T/O NIGHT. LACEY REMOVED, AWAITING FIRST VOID. AMB IND. PT REPORTS PAIN TOLERABLE. MEDICATED PER EMAR. ANTICIPATED DISCHARGE LATER TODAY. CALL LIGHT IN REACH, WILL REPORT TO DAY RN.
[2025-04-01 07:16] VITALS: BP 119/68
[2025-04-01] MEDS ORDERED: HYDR1TAB94 PO (11:33)
--- NOTE | 2025-04-01 12:05 | NUR ---
Russel is awake and fully dressed awaiting discharge when she welcomed my visit. Pt. is pleasant. Spouse is at bedside. Facilitated a life review and consdiered matters of fouzia and belief. Listen with empathy and interest and over the course of the visit rapport is established. Pt. displayed evidence of being engaged, motivated and aware. Pryaed with Pt. Pt. and spouse verbalized gratitude for the spiritual care visit.
--- NOTE | 2025-04-01 12:28 | NUR ---
DISCHARGE PT POD X1 S/P LAP HYSTER. A+O X4. VSS. SATS >95% ON RA. DENIES CHEST PAIN, PRESSURE. PPP. TOLERATING PO INTAKE. DENIES N/V/D/CONSTIPATION. 4 ABDOMINAL LAP INCISIONS CLOSED WITH WOUND GLUE C/D/I. VOIDING. EDUCATION PROVIDED. ALL QUESTIONS ANSWERED. PT STATES UNDERSTANDING. PT LEFT THE UNIT AT APPROXIMATELY 1230 WITH SPOUSE AND BELONGINGS.
== END 2025-04-01 12:31 | disposition home or self-care (01) ==
LOC: ORSCMMR 06:23 → ORD 07:30 → ORSCMMR 10:41 → SURS 10:41 → ORSCMMR 04-01 12:31 → SURS 04-01 12:31
PROVIDERS: Obstetrics & Gynecology
PROC: 0UT9FZZ Resection of Uterus, Via Natural or Artificial Opening With Percutaneous Endoscopic Assistance (ICD-10-PCS; principal; 2025-03-31 07:30)
PROC: 0UT7FZZ Resection of Bilateral Fallopian Tubes, Via Natural or Artificial Opening With Percutaneous Endoscopic Assistance (ICD-10-PCS; principal; 2025-03-31 07:30)
PROC: 0UT2FZZ Resection of Bilateral Ovaries, Via Natural or Artificial Opening With Percutaneous Endoscopic Assistance (ICD-10-PCS; principal; 2025-03-31 07:30)
PROC: 8E0W8CZ Robotic Assisted Procedure of Trunk Region, Via Natural or Artificial Opening Endoscopic (ICD-10-PCS; principal; 2025-03-31 07:30)
PROC: 0JQC0ZZ Repair Pelvic Region Subcutaneous Tissue and Fascia, Open Approach (ICD-10-PCS; principal; 2025-03-31 07:30)
DX: D25.9 Leiomyoma of uterus, unspecified (principal); N81.6 Rectocele; N81.5 Vaginal enterocele; N83.292 Other ovarian cyst, left side; N83.291 Other ovarian cyst, right side; J44.9 Chronic obstructive pulmonary disease, unspecified; E03.9 Hypothyroidism, unspecified; Z79.899 Other long term (current) drug therapy
CPT/HCPCS: 36415; 85025; 88307; A9270; J0690; J1100; J1171; J1885; J2405; J2704; J3010; J7120